=== PATIENT | female | born 1955 | race Caucasian/White ===

== ENCOUNTER 2020-09-28 20:47 | Emergency (ER) | payer SELFPAY ==
[~2020-09-28] VITALS: Ht 152.4 cm; Wt 81.8 kg
[2020-09-29] MEDS ORDERED: ACETAMINOPHEN 325 MG TABLET PO ONE (00:15)
[2020-09-29 01:55] VITALS: BP 135/77
== END 2020-09-29 02:30 | disposition home or self-care (01) ==
LOC: EMS 20:47
DX: S39.012A Strain of muscle, fascia and tendon of lower back, initial encounter (principal); R10.84 Generalized abdominal pain; F41.9 Anxiety disorder, unspecified; Z88.0 Allergy status to penicillin; Y04.2XXA Assault by strike against or bumped into by another person, initial encounter; Y93.89 Activity, other specified; Y92.008 Other place in unspecified non-institutional (private) residence as the place of occurrence of the external cause; Y99.8 Other external cause status
CPT/HCPCS: 72100